=== PATIENT | male | born 1990 | race Two or more races ===

== ENCOUNTER 2025-04-19 21:19 | Inpatient (IN) | payer MEDICAID, OTHER ==
[~2025-04-19] VITALS: Ht 182.9 cm; Wt 120.0 kg
--- NOTE | 2025-04-19 22:28 | ECG ---
[facility] Test Date: 2025-04-19 Test Time: 21:50:31 Pat Name: JUAN ALMARAZ Department: ED Room: 0245T Gender: M Nurse'S Assistant: HANNAH : 1990 Requested By: ANA PAULA ORTIZ Order Number: [id number] Reading MD: Tj Chapman Measurements Intervals [place] Rate: 106 P: 47 MI: 146 QRS: 71 QRSD: 101 T: 34 QT: 314 QTc: 417 Interpretive Statements Sinus tachycardia Probable left atrial enlargement Electronically Signed On 04-20-2025 17:26:37 PST by Tj Chapman Please click the below link to view image of tracing.
[2025-04-19 22:49] LABS: Hematocrit 35.4 % (41.0-53.0); Hemoglobin 12.2 g/dL (13.5-17.5); Mean Corpuscular Hemoglobin 29.8 pg (28.0-32.0); Mean Corpuscular Volume 86.9 fL (80.0-100.0); Nucleated Red Blood Cells % 0.1 %
[2025-04-19 22:56] LABS: Alanine Aminotransferase 23 U/L (7-40); Albumin 3.6 g/dL (3.2-4.8); Alkaline Phosphatase 80 U/L (46-116); Anion Gap 11 (5-15); BUN/Creatinine Ratio 13.7 (10.0-20.0); Blood Urea Nitrogen 17 mg/dL (9-23); Calcium 9.5 mg/dL (8.7-10.4); Carbon Dioxide 25 mmol/L (20-31); Chloride 105 mmol/L (98-107); Potassium 4.1 mmol/L (3.5-5.1); Sodium 141 mmol/L (136-145); Total Protein 6.1 g/dL (5.7-8.2)
[2025-04-19 22:57] LABS: Bilirubin, Total 0.5 mg/dL (0.2-1.0)
[2025-04-19 23:03] LABS: Glucose 157 mg/dL (74-106)
[2025-04-19 23:13] LABS: Base Excess -0.1 mmol/L (-2.0-3.0)
--- NOTE | 2025-04-19 23:56 | DVH ---
CHEST RADIOGRAPH INDICATION: Shortness of breath TECHNIQUE: Single frontal view of the chest was obtained COMPARISON: None FINDINGS: Patchy airspace disease throughout the left mid and lower lung with trace left- sided pleural effusion. Trace right-sided pleural effusion with mild right basilar atelectasis. Cardiac silhouette is borderline in size. Slight prominence of the pulmonary vasculature. Bones and soft tissues demonstrate no significant abnormality. IMPRESSION: Patchy airspace disease throughout the left mid and lower lung suspicious for pneumonia. Cardiomegaly with pulmonary venous congestion.
[2025-04-20] VITALS (16 sets, daily range): BP systolic 140–170; BP diastolic 68–100; PULSE 69–101; RESP 12–19; TEMP 97.6–98.8; O2SAT 91–100
[2025-04-20] MEDS: IOHEXOL 300 MG/ML 100ML BOTTLE IJ ONE (01:18)
[2025-04-20 01:39] LABS: COVID19 ANTIGEN SOFIA FIA NEGATIVE (NEGATIVE)
--- NOTE | 2025-04-20 01:57 | DVH ---
CTA Chest with intravenous contrast INDICATION: SOB, hypoxia, elevated D-dimer COMPARISON: XY CHEST XRAY 1 VIEW on DOS: 04/19/25 TECHNIQUE: Multidetector spiral CTA of the chest was performed of the chest with intravenous contrast. PULMONARY ANGIOGRAPHY PROTOCOL was utilized using a bolus- tracking technique centered on the main pulmonary artery. Axial, coronal and sagittal multiplanar and MIP reformats were performed. Radiation Dose : 1. Chest: CTDI volume is 27.97 mGy. Dose-length product is 2100.08 mGy*cm The dose indicators for CT are the volume Computed Tomography (CT) Dose Index (CTDIvol) and the Dose Length Product (DLP), and are measured in units of mGy and mGy-cm, respectively. These indicators are not patient dose, but values generated from the CT scanner acquisition factors. The report includes radiation exposure data for exposures received during this examination. FINDINGS: Pulmonary artery: No pulmonary embolism. Lower neck: Normal thyroid. Lungs: Moderate bilateral pleural effusions with adjacent atelectasis. Moderate multifocal parenchymal infiltrate throughout all lobes. No pneumothorax. Heart/Vascular Structures: Normal heart size. Trace pericardial effusion. Lymph Nodes: No adenopathy Musculoskeletal: No acute osseous abnormality. Soft tissues: Normal. Upper abdomen: Limited portions of the upper abdomen are unremarkable. IMPRESSION: 1. No pulmonary embolism. 2. Moderate bilateral pleural effusions with adjacent atelectasis. 3. Moderate multifocal parenchymal infiltrate throughout all lobes. 4. Trace pericardial effusion.
[2025-04-20] MEDS: FUROSEMIDE 40 MG/4 ML VIAL IV ONE (02:15)
--- NOTE | 2025-04-20 03:46 | ED.PDOC ---
History of Present Illness HPI Comments 35 year-old male presents to the ED with a chief complaint of SOB and swelling of the bilateral lower extremities. Patient reports swelling of the bilateral lower extremities, ranging from his feet to lower abdomen, for X1 week, progressively worsening. Patient reports SOB onset as of X4 days ago, denies Hx of Asthma or recent ill exposure. Patient was SAT at 88% on RA upon ED arrival. Patient reports additional symptoms of chills and nasal congestion earlier today, but otherwise, denies symptoms of weakness, fatigue, fever, or cough. There are no further complaints or modifying factors at this time. REVIEW OF SYSTEMS: General: No fever, (+) chills, or fatigue HEENT: No sore throat, no earache, (+) congestion, no neck pain. Cardiac: No chest pain. No palpitations. Lungs: (+) shortness of breath, no cough. GI: No nausea, no vomiting, no diarrhea, no constipation, no abdominal pain : No dysuria, frequency, or urgency. No hematuria. Musculoskeletal: (+) Bilat LE swelling. Skin: No rash, no itching. Neuro: No headache, no dizziness, no weakness (And as sated in HPI) PHYSICAL EXAM: General: Awake, alert and oriented. No acute distress. Skin: Skin in warm, dry and intact. Appropriate color for ethnicity. HEENT: The head is normocephalic and atraumatic. Conjunctivae are clear without exudates or hemorrhage. Sclera is non-icteric. Eyelids are normal in appearance without swelling or lesions. Oral mucosa is pink and moist Neck: The neck is supple with normal range of motion. No JVD. Cardiac: Heart rate and rhythm are normal. No murmurs, gallops, or rubs are auscultated. Respiratory: Bilateral Rales Abdominal: Abdomen is soft, non-tender without distention, guarding or rigidity. Bowel sounds are present and normoactive in all four quadrants. Extremities: (+) Bilat 2+ pitting edema. Neurological: The patient is awake, alert and oriented to person, place, and time with normal speech. Speech is clear. There is no facial asymmetry. Psychiatric: Appropriate mood and affect. Good judgement and insight. Chief Complaint: Shortness of Breath Time Seen by MD: 21:30 Primary Care Provider: NONE Reviewed Notes: Medications, Allergies Allergies: Coded Allergies: NO KNOWN ALLERGIES (Unverified , 04/25/11) Information Source: Patient Mode of Arrival: Ambulatory Severity: Moderate Timing: Days Duration: Since onset Past Medical History PAST MEDICAL HISTORY: Denies Surgical History: Denies all surgeries Family History Family History: No family hx of DM Social History Smoker: Cigarettes Alcohol: Heavy Drugs: Marijuana Lives In: Home Was a procedure done? Was a procedure done?: No EKG EKG : Pulse Rate (adult): 106 Comments Sinus tachycardia Probable left atrial enlargement No STEMI Differential Dx Considerations may include: Differential diagnoses considered includebut arenot limited to acute Bronchitis, Asthma, COPD, Pneumothorax, PE, CHF, Pulmonary HTN, Anemia, CO Poisoning, Methemoglobinemia, Hyperventilation, Metabolic Acidosis, Pulmonary Edema, Pneumonia, ACS, Pericardial Tamponade, Anxiety, other X-Ray, Labs, Meds, VS Vital Signs Date Time Temp Pulse Resp B/P (MAP) Pulse Ox O2 Delivery O2 Flow Rate FiO2 04/20/25 03:46 106 04/20/25 03:00 95 Nasal Cannula* 3 32 04/20/25 02:46 91 14 167/98 (121) 95 04/20/25 02:32 98.5 94 12 140/86 (104) 94 98.5 04/20/25 02:15 167/98 04/19/25 21:50 106 04/19/25 21:29 98.9 115 20 153/82 88 98.9 Lab Test 04/19/25 23:39 04/19/25 23:00 04/19/25 22:59 04/19/25 21:57 Range/Units Influenza Type A Antigen Negative Negative Influenza Type B Antigen Negative Negative SARS-CoV-2 Antigen (Rapid) Negative NEGATIVE Blood Gas Specimen Type Arterial Blood Gas Sample Site Left radial Blood Gas Patient Temperature 37.0 Arterial Blood Date Drawn [id number] Arterial Blood pH 7.434 7.350-7.450 Arterial Blood Partial Pressure CO2 36.2 35.0-48.0 mmHg Arterial Blood Partial Pressure O2 89.9 83.0-108.0 mmHg Arterial Blood HCO3 23.7 21.0-28.0 mmol/L Arterial Blood Oxygen Saturation 96.4 94.0-98.0 % Arterial Blood Base Excess -0.1 -2.0-3.0 mmol/L Arterial Blood Oxyhemoglobin 94.3 94.0-98.0 % Arterial Blood Carboxyhemoglobin 1.5 0.5-1.5 % Arterial Blood Methemoglobin 0.7 0.0-1.5 % Arterial Blood Deoxyhemoglobin 3.5 0.0-5.0 % Art Test Modified Blood Gas Total Hemoglobin 13.40 L 13.5-17.5 g/dL Blood Gas Liter Flow 3.00 Blood Gas Modality Nasal cannula FiO2 % 32.0 Lactic Acid Level 0.7 0.4-2.0 mmol/L Troponin I High Sensitivity 4 4 </=54 ng/L White Blood Count 10.3 4.4-10.8 10^3/uL Red Blood Count 4.08 L 4.5-5.90 10^6/uL Hemoglobin 12.2 L 13.5-17.5 g/dL Hematocrit 35.4 L 41.0-53.0 % Mean Corpuscular Volume 86.9 80.0-100.0 fL Mean Corpuscular Hemoglobin 29.8 28.0-32.0 pg Mean Corpuscular Hemoglobin Concent 34.3 32.0-36.0 g/dL Red Cell Distribution Width 13.7 11.8-14.3 % Platelet Count 234 140-450 10^3/uL Mean Platelet Volume 7.6 6.9-10.8 fL Neutrophils (%) (Auto) 86.6 H 37.0-80.0 % Lymphocytes (%) (Auto) 6.8 L 10.0-50.0 % Monocytes (%) (Auto) 5.5 0.0-12.0 % Eosinophils (%) (Auto) 0.6 0.0-7.0 % Basophils (%) (Auto) 0.5 0.0-2.0 % Neutrophils # (Auto) 8.9 H 1.6-8.6 10 ^3/uL Lymphocytes # (Auto) 0.7 0.4-5.4 10 ^3/uL Monocytes # (Auto) 0.6 0-1.3 10 ^3/uL Eosinophils # (Auto) 0.1 0-0.8 10 ^3/uL Basophils # (Auto) 0 0-0.2 10 ^3/uL Nucleated Red Blood Cells 0.1 % D-Dimer, Quantitative 1.19 H 0.0-0.49 mg/L FEU Sodium Level 141 136-145 mmol/L Potassium Level 4.1 3.5-5.1 mmol/L Chloride Level 105 98-107 mmol/L Carbon Dioxide Level 25 20-31 mmol/L Anion Gap 11 5-15 Blood Urea Nitrogen 17 9-23 mg/dL Creatinine 1.24 0.700-1.30 mg/dL Glomerular Filtration Rate Calc 77 >90 mL/min BUN/Creatinine Ratio 13.7 10.0-20.0 Serum Glucose 157 H 74-106 mg/dL Calcium Level 9.5 8.7-10.4 mg/dL Total Bilirubin 0.5 0.2-1.0 mg/dL Aspartate Amino Transferase (AST) 20 13-40 U/L Alanine Aminotransferase (ALT) 23 7-40 U/L Alkaline Phosphatase 80 46-116 U/L B-Type Natriuretic Peptide 63.15 0-100 pg/mL Total Protein 6.1 5.7-8.2 g/dL Albumin 3.6 3.2-4.8 g/dL Current Medications Medications (Trade) Dose Ordered Sig/Abida Route Start Time Stop Time Status Last Admin Furosemide (Lasix Injection) 40 mg ONCE ONCE IV 04/20/25 02:15 04/20/25 02:16 DC 04/20/25 02:15 Ceftriaxone Sodium 50 ml @ 100 mls/hr ONCE ONCE IV 04/20/25 02:15 04/20/25 02:44 DC 04/20/25 02:15 ORDERING PHYSICIAN: ANA PAULA ORTIZ MD PROCEDURE(s): CXR1 - CHEST XRAY 1 VIEW REASON: Shortness of breath ORDER NUMBER(s): [id number], ACCESSION NUMBER(s): [id number] CHEST RADIOGRAPH INDICATION: Shortness of breath TECHNIQUE: Single frontal view of the chest was obtained COMPARISON: None FINDINGS: Patchy airspace disease throughout the left mid and lower lung with trace left- sided pleural effusion. Trace right-sided pleural effusion with mild right basilar atelectasis. Cardiac silhouette is borderline in size. Slight prominence of the pulmonary vasculature. Bones and soft tissues demonstrate no significant abnormality. IMPRESSION: Patchy airspace disease throughout the left mid and lower lung suspicious for pneumonia. Cardiomegaly with pulmonary venous congestion. RING PHYSICIAN: ANA PAULA ORTIZ MD PROCEDURE(s): CTACH - CT ANGIO CHEST CONTRAST REASON: SOB, hypoxia, elevated D-dimer ORDER NUMBER(s): [id number], ACCESSION NUMBER(s): [id number] CTA Chest with intravenous contrast INDICATION: SOB, hypoxia, elevated D-dimer COMPARISON: XY CHEST XRAY 1 VIEW on DOS: 04/19/25 TECHNIQUE: Multidetector spiral CTA of the chest was performed of the chest with intravenous contrast. PULMONARY ANGIOGRAPHY PROTOCOL was utilized using a bolus- tracking technique centered on the main pulmonary artery. Axial, coronal and sagittal multiplanar and MIP reformats were performed. Radiation Dose : 1. Chest: CTDI volume is 27.97 mGy. Dose-length product is 2100.08 mGy*cm The dose indicators for CT are the volume Computed Tomography (CT) Dose Index (CTDIvol) and the Dose Length Product (DLP), and are measured in units of mGy and mGy-cm, respectively. These indicators are not patient dose, but values generated from the CT scanner acquisition factors. The report includes radiation exposure data for exposures received during this examination. FINDINGS: Pulmonary artery: No pulmonary embolism. Lower neck: Normal thyroid. Lungs: Moderate bilateral pleural effusions with adjacent atelectasis. Moderate multifocal parenchymal infiltrate throughout all lobes. No pneumothorax. Heart/Vascular Structures: Normal heart size. Trace pericardial effusion. Lymph Nodes: No adenopathy Musculoskeletal: No acute osseous abnormality. Soft tissues: Normal. Upper abdomen: Limited portions of the upper abdomen are unremarkable. IMPRESSION: 1. No pulmonary embolism. 2. Moderate bilateral pleural effusions with adjacent atelectasis. 3. Moderate multifocal parenchymal infiltrate throughout all lobes. 4. Trace pericardial effusion. Time of 1ST Reevaluation: 03:43 Reevaluation 1ST: Unchanged Patient Education/Counseling: Need For Follow Up Family Education/Counseling: No Family Present SEPSIS Sepsis Screen Date sepsis recognized/suspect: Apr 19, 2025 Time Sepsis recognized/suspect: 2132 Recent Procedure: No On Antibiotic Therapy: No Respiratory Rate >20: No Heart Rate >90: No Temp<36 C (96.8 F) or >38.3 C: No SBP <90 or MAP <65 mmHG: No New Acute Mental Status Change: No Is the patient on CPAP, BIPAP,: No Physician Orders Abg W/ Co-Ox (04/19/25 22:26) Chest Xray 1 View (04/19/25 22:26) Electrocardigram (04/19/25 23:26) Electrocardigram (04/20/25 01:26) Ct Angio Chest Contrast (04/20/25 00:49) Vital Signs Date Time Temp Pulse Resp B/P (MAP) Pulse Ox O2 Delivery O2 Flow Rate FiO2 04/20/25 03:46 106 04/20/25 03:00 95 Nasal Cannula* 3 32 04/20/25 02:46 91 14 167/98 (121) 95 04/20/25 02:32 98.5 94 12 140/86 (104) 94 98.5 04/20/25 02:15 167/98 04/19/25 21:50 106 04/19/25 21:29 98.9 115 20 153/82 88 98.9 Laboratory Tests Test 04/19/25 21:57 04/19/25 22:59 White Blood Count 10.3 10^3/uL (4.4-10.8) Lactic Acid Level 0.7 mmol/L (0.4-2.0) Medications Medications Dose Ordered Sig/Abida Route Start Time Stop Time Status Last Admin Dose Admin Ceftriaxone Sodium 50 ml @ 100 mls/hr ONCE ONCE IV 04/20/25 02:15 04/20/25 02:44 DC 04/20/25 02:15 Furosemide 40 mg ONCE ONCE IV 04/20/25 02:15 04/20/25 02:16 DC 04/20/25 02:15 Departure 1 Departure Time of Disposition: 04:13 Impression: Primary Impression: Hypoxia Additional Impressions: Pleural effusion Bilateral lower extremity edema Pericardial effusion Disposition: 09 ADMITTED INPATIENT Condition: Stable Comments 35-year-old male who presented with acute onset of shortness of breath, b ilateral lower extremity edema, hypoxia on room air. D-dimer positive. CT angio findings negative for PE. Other findings concerning for possible infectious process versus CHF. Antibiotics initiated in the ED, supplemental O2 administered. Patient is stabilized in the emergency department. Patient admitted to hospitalist service for further treatment, evaluation and monitoring. Critical Care Note Critical Care Time?: No Stability Stability form required: No Heart Score Heart Score: Heart Score Response (Comments) Value History Slightly Suspicious 0 EKG Normal 0 Age <45 0 Risk Factors No known risk factors 0 Troponin N/A 0 Total 0 I personally scribed for ANA PAULA ORTIZ MD ([email or web address]) on 04/20/25 at 03:46. Electronically submitted by Nancy Garcia ([employer]). ANA PAULA ORTIZ MD Apr 20, 2025 03:46
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
[2025-04-20] MEDS ORDERED: NITROGLYCERIN 0.4 MG SL TAB SL PRN (07:15)
[2025-04-20] MEDS ORDERED: DEXTROSE (50%) 50ML SYRG IV PRN (07:15)
--- NOTE | 2025-04-20 08:24 | DVH ---
Bilateral lower extremity venous duplex CLINICAL HISTORY: ble swelling ro dvt COMPARISON: None TECHNIQUE: Duplex Doppler evaluation of the deep venous systems of both lower extremities from the common femoral veins to the popliteal veins including color Doppler and spectral/pulsed waveform analysis was performed. FINDINGS: RIGHT SIDE: The common femoral vein demonstrates appropriate compressibility and waveform variability. There is compressibility/patency of the great saphenous vein at the proximal thigh. The femoral vein demonstrates appropriate compressibility and waveform variability. The deep femoral vein demonstrates appropriate compressibility and waveform variability. The popliteal vein demonstrates appropriate compressibility and waveform variability. There is normal compressibility at the tibioperoneal trunk. LEFT SIDE: The common femoral vein demonstrates appropriate compressibility and waveform variability. There is compressibility/patency of the great saphenous vein at the proximal thigh. The femoral vein demonstrates appropriate compressibility and waveform variability. The deep femoral vein demonstrates appropriate compressibility and waveform variability. The popliteal vein demonstrates appropriate compressibility and waveform variability. There is normal compressibility at the tibioperoneal trunk. IMPRESSION: No right or left femoropopliteal venous thrombosis.
--- NOTE | 2025-04-20 08:29 | DVHHP2 ---
History of Present Illness Reason for Visit: sob and ble swelling History of Present Illness 35-year-old male with a past medical history significant for diabetic peripheral neuropathy of the lower extremities, asthma, and type 2 diabetes mellitus on insulin, with a history of toe amputation two years ago, presents with progres sive bilateral lower extremity swelling and shortness of breath. The patient reports that approximately 1.5 weeks prior to presentation, he developed swelling beginning below the knees extending to his feet, which has progressively worsened and now involves the upper thighs. Over the last four days, the swelling has become significantly worse and is associated with severe pain, causing difficulty ambulating. He states he was evaluated at [facility], where labs were drawn, but he has been unable to obtain follow-up or further guidance despite multiple attempts to contact the clinic. He reports shortness of breath, but denies chest pain, fever, or productive cough. He does not use home oxygen. On arrival to the ED, the patient was noted to be hypoxic with oxygen saturation of 88% on room air. He denies recent travel, immobilization, or prior history of pulmonary embolism.In the emergency department, laboratory evaluation revealed CBC with hemoglobin 11.7 g/dL and hematocrit 35.1%, CMP unremarkable, troponin negative x2, and BNP unremarkable at 119. ABG was within normal limits. CT angiography of the chest was negative for pulmonary embolism, however imaging demonstrated small to moderate pulmonary infiltrates consistent with pneumonia. Respiratory viral panel was positive for influenza, with COVID-19 negative. The patient was noted to have diffuse bilateral lower extremity edema on exam. Given hypoxia, imaging findings, and functional decline, the patient requires inpatient admission for further management. Past Medical History Reviewed, non-contributory to the management of this case. Past Surgical History See HPI above Family History Reviewed, non-contributory to the management of this case. Past Social History Patient states he drank four days ago denies any drug or smoking Review of Systems Constitutional: No: Fever, Chills, Sweats, Weakness, Malaise, Other Eyes: No: Pain, Vision change, Conjunctivae inflammation, Eyelid inflammation, Other, Redness ENT: No: Ear pain, Ear discharge, Nose pain, Nose discharge, Nose congestion, Mouth pain, Mouth swelling, Throat pain, Throat swelling, Other Respiratory: Other (diminished throughout ); No: Cough, Dry, Shortness of breath, SOB with excertion, Wheezing, Hemoptysis, Pleuritic Pain, Sputum, Wheezing Cardiovascular: Edema; No: Chest Pain, Palpitations, Orthopnea, Paroxysmal Noc. Dyspnea, Lt Headedness, Other Gastrointestinal: No: Nausea, Vomiting, Abdominal Pain, Diarrhea, Constipation, Melena, Hematochezia, Other Genitourinary: No Dysuria, No Frequency, No Incontinence, No Hematuria, No Retention, No Other Musculoskeletal: leg pain; No: other, neck pain, shoulder pain, arm pain, back pain, hand pain, foot pain Skin: No: Rash, Lesions, Jaundice, Bruising, Other Neurological: No: Weakness, Numbness, Incoordination, Change in speech, Confusion, Seizures, Other Allergies: Coded Allergies: NO KNOWN ALLERGIES (Unverified , 04/25/11) Medications Current Medications Medications Dose Ordered Sig/Abida Route Start Time Stop Time Status Last Admin Dose Admin Heparin Sodium (Porcine) 5,000 units Q12HR SC 04/20/25 10:00 Atorvastatin Calcium 20 mg HS PO 04/20/25 22:00 Carvedilol 6.25 mg Q12HR PO 04/20/25 10:00 Furosemide 40 mg BID IV 04/20/25 10:00 Nitroglycerin 0.4 mg Q5MINP PRN SL 04/20/25 07:15 Albuterol 2.5 mg Q4HR [facility] 04/20/25 10:00 Ipratropium [place] 0.5 mg Q4HR [facility] 04/20/25 10:00 Prednisone 60 mg DAILY PO 04/20/25 10:00 Pantoprazole Sodium 40 mg DAILY IV 04/21/25 10:00 Diagnostic Test (Pha) 1 strip ACHS 04/20/25 11:30 Insulin Human Regular ACHS SC 04/20/25 11:30 Dextrose 50 ml UD PRN IV 04/20/25 07:15 Insulin Glargine 5 units BID@0700,2200 [place] 04/20/25 22:00 Exam Vital Signs Vital Signs Date Time Temp Pulse Resp B/P (MAP) Pulse Ox O2 Delivery O2 Flow Rate FiO2 04/20/25 07:25 98.3 69 19 162/100 (120) 96 98.3 04/20/25 07:25 Nasal Cannula* 2 28 General Appearance: Alert, Oriented X3, Cooperative, No acute distress HEENT: Atraumatic, PERRLA, EOMI, Mucous membr. moist/pink Respiratory: Other (diminished throughout ) Cardiovascular: Regular rate, Normal S1, Normal S2, No murmurs Abdominal: Normal bowel sounds, Soft, No tenderness, No hepatospenomegaly, No masses Extremities: No clubbing, No cyanosis, Normal pulses, No tenderness/swelling, Other (edema to ble ) Skin: No rashes, No breakdown, No significant lesion Neuro: Normal gait, Normal speech, Strength at 5/5 X4 ext, Normal tone, Sensation intact, Cranial nerves 3-12 NL Psych/Mental Status: Mental status NL, Mood NL Labs/Xrays CT scan angio negative for PE atelectasis mild moderate infiltrates chest x-ray with pneumonia I reviewed labs, imaging CT scan abdomen pelvis, EKG and all diagnostic studies on this patient from ED records and the medical chart Labs Test 04/20/25 08:08 04/19/25 23:39 04/19/25 23:00 04/19/25 22:59 Range/Units Influenza Type A Antigen Negative Negative Influenza Type B Antigen Negative Negative SARS-CoV-2 Antigen (Rapid) Negative NEGATIVE Blood Gas Specimen Type Arterial Blood Gas Sample Site Left radial Blood Gas Patient Temperature 37.0 Arterial Blood Date Drawn [id number] Arterial Blood pH 7.434 7.350-7.450 Arterial Blood Partial Pressure CO2 36.2 35.0-48.0 mmHg Arterial Blood Partial Pressure O2 89.9 83.0-108.0 mmHg Arterial Blood HCO3 23.7 21.0-28.0 mmol/L Arterial Blood Oxygen Saturation 96.4 94.0-98.0 % Arterial Blood Base Excess -0.1 -2.0-3.0 mmol/L Arterial Blood Oxyhemoglobin 94.3 94.0-98.0 % Arterial Blood Carboxyhemoglobin 1.5 0.5-1.5 % Arterial Blood Methemoglobin 0.7 0.0-1.5 % Arterial Blood Deoxyhemoglobin 3.5 0.0-5.0 % Art Test Modified Blood Gas Total Hemoglobin 13.40 L 13.5-17.5 g/dL Blood Gas Liter Flow 3.00 Blood Gas Modality Nasal cannula FiO2 % 32.0 Lactic Acid Level 0.7 0.4-2.0 mmol/L Test 04/19/25 21:57 Range/Units White Blood Count 10.3 4.4-10.8 10^3/uL Red Blood Count 4.08 L 4.5-5.90 10^6/uL Hemoglobin 12.2 L 13.5-17.5 g/dL Hematocrit 35.4 L 41.0-53.0 % Mean Corpuscular Volume 86.9 80.0-100.0 fL Mean Corpuscular Hemoglobin 29.8 28.0-32.0 pg Mean Corpuscular Hemoglobin Concent 34.3 32.0-36.0 g/dL Red Cell Distribution Width 13.7 11.8-14.3 % Platelet Count 234 140-450 10^3/uL Mean Platelet Volume 7.6 6.9-10.8 fL Neutrophils (%) (Auto) 86.6 H 37.0-80.0 % Lymphocytes (%) (Auto) 6.8 L 10.0-50.0 % Monocytes (%) (Auto) 5.5 0.0-12.0 % Eosinophils (%) (Auto) 0.6 0.0-7.0 % Basophils (%) (Auto) 0.5 0.0-2.0 % Neutrophils # (Auto) 8.9 H 1.6-8.6 10 ^3/uL Lymphocytes # (Auto) 0.7 0.4-5.4 10 ^3/uL Monocytes # (Auto) 0.6 0-1.3 10 ^3/uL Eosinophils # (Auto) 0.1 0-0.8 10 ^3/uL Basophils # (Auto) 0 0-0.2 10 ^3/uL Nucleated Red Blood Cells 0.1 % D-Dimer, Quantitative 1.19 H 0.0-0.49 mg/L FEU Sodium Level 141 136-145 mmol/L Potassium Level 4.1 3.5-5.1 mmol/L Chloride Level 105 98-107 mmol/L Carbon Dioxide Level 25 20-31 mmol/L Anion Gap 11 5-15 Blood Urea Nitrogen 17 9-23 mg/dL Creatinine 1.24 0.700-1.30 mg/dL Glomerular Filtration Rate Calc 77 >90 mL/min BUN/Creatinine Ratio 13.7 10.0-20.0 Serum Glucose 157 H 74-106 mg/dL Calcium Level 9.5 8.7-10.4 mg/dL Total Bilirubin 0.5 0.2-1.0 mg/dL Aspartate Amino Transferase (AST) 20 13-40 U/L Alanine Aminotransferase (ALT) 23 7-40 U/L Alkaline Phosphatase 80 46-116 U/L B-Type Natriuretic Peptide 63.15 0-100 pg/mL Total Protein 6.1 5.7-8.2 g/dL Albumin 3.6 3.2-4.8 g/dL SEPSIS Sepsis Screen Date sepsis recognized/suspect: Apr 20, 2025 Time Sepsis recognized/suspect: 724 Recent Procedure: No On Antibiotic Therapy: No Respiratory Rate >20: No Heart Rate >90: No Temp<36 C (96.8 F) or >38.3 C: No SBP <90 or MAP <65 mmHG: No New Acute Mental Status Change: No Is the patient on CPAP, BIPAP,: No Physician Orders Ct Angio Chest Contrast (04/20/25 00:49) Bilat Lower Dvt (04/20/25 07:03) Admit (04/20/25 07:03) Advance Directive (04/20/25 07:03) Vital Signs .PER UNIT PROTOCOL (04/20/25 07:03) Maintain Fluid Restrictions QSHIFT (04/20/25 07:03) Obtain Daily Weight 22 (04/20/25 07:03) Heparin Sodium (Porcine) (04/20/25 10:00) Atorvastatin (Lipitor) (04/20/25 22:00) Carvedilol Tablet (Coreg Tablet) (04/20/25 10:00) Comprehensive Metabolic Panel (04/21/25 04:00) Complete Blood Count (04/21/25 04:00) Echo 2d Mode Cardiac Dop (04/20/25 07:03) Copy Of Previous Echo Report T (04/20/25 07:03) Oxygen By Nasal Cannula (04/20/25 07:03) Early Ambulation (04/20/25 07:03) Sequential Compression Device (04/20/25 07:03) Cardiac Diet-2gna,Lofat,Lochol (04/20/25 Breakfast) Ambulate Every 4hours Q4H (04/20/25 07:03) Troponin-I Hs (04/20/25 07:03) Cardiac Rehabilitation - Outpa (04/20/25 ) Subjective Activity Tolerance BID (04/20/25 07:03) Strict I & O QSHIFT (04/20/25 07:03) Teach: Heart Failure (04/20/25 07:03) Thyroid Stimulating Hormone (04/20/25 07:03) Urinalysis (04/20/25 07:03) Magnesium (04/20/25 07:03) * Cardiology Consult (04/20/25 07:03) Cardiac Rehabilitation: (04/20/25 07:03) Furosemide Injection (Lasix Injection) (04/20/25 10:00) Nitroglycerin Sublingual (Ntrostat Subli (04/20/25 07:15) Stat Ekg For Chest Pain (04/20/25 07:03) Notify Md Of Changes From Base (04/20/25 07:03) Wool Washing Machine Operator For 24 Hours (04/20/25 07:03) Emergency Dysrhythmia Protocol (04/20/25 07:03) Rhythm Strips Once Every Shift (04/20/25 07:03) Oxygen By Nasal Cannula (04/20/25 07:03) Troponin-I Hs (04/20/25 08:03) Troponin-I Hs (04/20/25 10:03) Albuterol Medneb (Ventolin Medneb) (04/20/25 10:00) Ipratropium Medneb (Atrovent Medneb) (04/20/25 10:00) Prednisone Tablet (04/20/25 10:00) Glucose Blood (Accu-Chek Comfort Curve T (04/20/25 11:30) Insulin R (Human) (Insulin R) (04/20/25 11:30) Dextrose 50% Syringe (04/20/25 07:15) Insulin Lantus (Glargine) (Lantus) (04/20/25 22:00) Pantoprazole (Protonix) (04/21/25 10:00) Vital Signs Date Time Temp Pulse Resp B/P (MAP) Pulse Ox O2 Delivery O2 Flow Rate FiO2 04/20/25 07:25 98.3 69 19 162/100 (120) 96 98.3 04/20/25 07:25 69 19 96 Nasal Cannula* 2 28 04/20/25 07:25 98.3 69 19 162/100 (120) 96 98.3 04/20/25 03:46 106 04/20/25 03:00 95 Nasal Cannula* 3 32 04/20/25 02:46 91 14 167/98 (121) 95 04/20/25 02:32 98.5 94 12 140/86 (104) 94 98.5 04/20/25 02:15 167/98 Laboratory Tests Test 04/19/25 21:57 04/19/25 22:59 White Blood Count 10.3 10^3/uL (4.4-10.8) Lactic Acid Level 0.7 mmol/L (0.4-2.0) Medications Medications Dose Ordered Sig/Abida Route Start Time Stop Time Status Last Admin Dose Admin Ceftriaxone Sodium 50 ml @ 100 mls/hr ONCE ONCE IV 04/20/25 02:15 04/20/25 02:44 DC 04/20/25 02:15 100 MLS/HR Furosemide 40 mg ONCE ONCE IV 04/20/25 02:15 04/20/25 02:16 DC 04/20/25 02:15 40 MG Assessment/Plan Assessment/Plan 35-year-old male admitted for acute hypoxic respiratory failure secondary to influenza-associated pneumonia, with severe bilateral lower extremity edema and impaired mobility, requiring inpatient management and further diagnostic evaluation. Acute hypoxic respiratory failure d/t pna and asthma exacerbation found on ct scan and cxr cont Oxygen saturation 88% on room air Supplemental oxygen to maintain SpO2 >92% Continuous pulse oximetry ordered duoneb atc ordered prednisone influenza and covid negative acute bacterial community acquired pneumonia Influenza negative, COVID negative CT chest showing pulmonary infiltrates Empiric antibiotics per pneumonia protocol ceftriaxone and doxy Incentive spirometry acute Bilateral lower extremity edema with pain Progressive swelling from feet to thighs Evaluate for volume overload vs inflammatory etiology ordered echo fu results cxr and bnp normal ordered Lower extremity venous duplex ultrasound Elevation of extremities ordered lovenox dvt ppx for now ordered lasix bid strict i/o's chronic problems Type 2 diabetes mellitus on insulin ISS started home dose lantus 5units bid History of toe amputation Diabetic peripheral neuropathy Chronic lower extremity neuropathic pain Asthma ordered albuterol/atrovent prn Anemia, mild Hemoglobin FEN / PPx Fluids: Cautious IV fluids Electrolytes: Monitor daily BMP Nutrition: Diabetic diet DVT Prophylaxis: SCDs lovenox GI Prophylaxis: protonix Disposition Admit to medical floor with oxygen support for management of acute hypoxic respiratory failure due to influenza pneumonia, evaluation of severe bilateral lower extremity edema, and optimization of diabetes control. Anticipate discharge once oxygen requirements improve and patient is ambulatory with controlled pain. Plan discussed with: Patient My Orders Orders - MED MARVIN DNP Procedure Category Date Status Time Bilat Lower Dvt US 04/20/25 Resulted 07:03 Admit ADMIT 04/20/25 Transmitted 07:03 Advance Directive SHAYNE 04/20/25 In Process 07:03 Vital Signs SHAYNE 04/20/25 In Process 07:03 Maintain Fluid SHAYNE 04/20/25 In Process Restrictions 07:03 Obtain Daily Weight SHAYNE 04/20/25 In Process 07:03 Heparin Sodium PHA 04/20/25 In Process (Porcine) 10:00 Atorvastatin (Lipitor) PHA 04/20/25 In Process 22:00 Carvedilol Tablet PHA 04/20/25 In Process (Coreg Tablet) 10:00 Comprehensive LAB 04/21/25 Verified Metabolic Panel 04:00 Complete Blood Count LAB 04/21/25 Verified 04:00 Echo 2d Mode Cardiac US 04/20/25 Logged DOP 07:03 Copy Of Previous Echo SHAYNE 04/20/25 In Process Report T 07:03 Oxygen By Nasal RT 04/20/25 Transmitted Cannula 07:03 Early Ambulation SHAYNE 04/20/25 In Process 07:03 Sequential SHAYNE 04/20/25 In Process Compression Device 07:03 Cardiac DIET 04/20/25 Transmitted Diet-2gna,Lofat,Lochol Breakfast Ambulate Every 4hours [facility]NE 04/20/25 In Process 07:03 Troponin-I Hs LAB 04/20/25 In Process 07:03 Cardiac SHAYNE 04/20/25 In Process Rehabilitation - Outpa Subjective Activity SHAYNE 04/20/25 In Process Tolerance 07:03 Strict I & O SHAYNE 04/20/25 In Process 07:03 Teach: Heart Failure SHAYNE 04/20/25 In Process 07:03 Thyroid Stimulating LAB 04/20/25 In Process Hormone 07:03 Urinalysis LAB 04/20/25 Logged 07:03 Magnesium LAB 04/20/25 In Process 07:03 * Cardiology Consult CONS 04/20/25 Transmitted 07:03 Cardiac ORDERS 04/20/25 Transmitted Rehabilitation: 07:03 Furosemide Injection PHA 04/20/25 In Process (Lasix Injection) 10:00 Nitroglycerin PHA 04/20/25 In Process Sublingual (Ntrostat 07:15 Stat Ekg For Chest SHAYNE 04/20/25 In Process Pain 07:03 Notify Of Changes [facility] 04/20/25 In Process From Base 07:03 Wool Washing Machine Operator For [facility] 04/20/25 In Process 24 Hours 07:03 Emergency Dysrhythmia [facility] 04/20/25 In Process Protocol 07:03 Rhythm Strips Once [facility] 04/20/25 In Process Every Shift 07:03 Oxygen By Nasal RT 04/20/25 Transmitted Cannula 07:03 Troponin-I Hs LAB 04/20/25 Logged 08:03 Troponin-I Hs LAB 04/20/25 Logged 10:03 Albuterol Medneb PHA 04/20/25 In Process (Ventolin Medneb) 10:00 Ipratropium Medneb PHA 04/20/25 In Process (Atrovent Medneb) 10:00 Prednisone Tablet PHA 04/20/25 In Process 10:00 Glucose Blood PHA 04/20/25 In Process (Accu-Chek Comfort 11:30 Insulin R (Human) PHA 04/20/25 In Process (Insulin R) 11:30 Dextrose 50% Syringe PHA 04/20/25 In Process 07:15 Insulin Lantus PHA 04/20/25 In Process (Glargine) (Lantus) 22:00 Pantoprazole PHA 04/21/25 In Process (Protonix) 10:00 Date of Service: Apr 20, 2025 Billing Provider: MED MARVIN DNP Common Visit Codes: [id number] INP/OBS CARE (HIGH) MED MARVIN DNP Apr 20, 2025 08:29
[2025-04-20] MEDS: PANTOPRAZOLE 40 MG/10 ML VIAL INJ IV ONE (08:34)
[2025-04-20] MEDS ORDERED: AZITHROMYCIN 500MG/250ML 250 ML IV ONE (09:00)
[2025-04-20] MEDS ORDERED: AZITHROMYCIN 500MG/250ML 250 ML IV SCH (10:00)
[2025-04-20] MEDS: predniSONE 20 MG TAB PO SCH (10:00)
[2025-04-20] MEDS: FUROSEMIDE 40 MG/4 ML VIAL IV SCH (10:08)
[2025-04-20] MEDS: CARVEDILOL 3.125 MG TAB PO SCH (10:12)
[2025-04-20] MEDS: HEPARIN SODIUM (PORCINE) 5000 UNITS/ML 1ML VIAL SC SCH (10:14)
[2025-04-20] MEDS: LOSARTAN POTASSIUM 50 MG TAB PO SCH (10:17)
[2025-04-20] MEDS: DOXYCYCLINE 100MG/100ML 100 ML IV SCH (10:41)
[2025-04-20] MEDS: IPRATROPIUM BROM 0.5 MG/2.5ML INH SOL NEB SCH (11:08)
[2025-04-20] MEDS: ALBUTEROL SULF 2.5 MG/0.5ML(0.5%) NEB SOLN NEB SCH (11:08)
[2025-04-20] MEDS: ACCU-CHEK COMFORT CURVE STRIP VI SCH (11:30)
[2025-04-20] MEDS: InsuLIN REG 1unit/0.01ml Soln (100units/ml) SC SCH (11:30)
--- NOTE | 2025-04-20 11:56 | DVHINCON2 ---
Date Seen: Apr 20, 2025 Referring Physician KEVIN Juan Reason for Consultation B/L LE edema History of Present Illness Patient is a 35-year-old male presented to the ED with a chief complaint of shortness of breath and bilateral lower extremity edema of for about 10 days. Patient noticed that his ankle started swelling about 10 days ago and made progressed up to his knees in the last week. Patient also reported of occas ional shortness of breath more when he bent down to tie shoes, denies orthopnea, PND, chest pain. He also has been reporting of mild intermittent cough with minimal whitish phlegm, denies any hemoptysis and reports of tooth ache for the last few weeks for which he is not consulted any dentist. Patient denied any fever, chills, night sweats, weight loss. On arrival to the hospital patient was seen to be tachycardic in 100, elevated blood pressure in 160-170 SBP, ECG showed sinus rhythm with no acute ST or T-wave changes. Patient denied any episode of shortness of breath or lower extremity swelling prior to this. Past Medical History Insulin-dependent type 2 diabetes mellitus, diabetic peripheral neuropathy Past Surgical History Right great toe amputation Family History: Patient reports no known family medical history. Family History No history of heart failure, VT, sudden cardiac in the family Social History Patient vapes, drinks 6 pack of beer twice a week, no other drug use Allergies: Coded Allergies: NO KNOWN ALLERGIES (Unverified , 04/25/11) Current Medications Current Medications Medications (Trade) Dose Ordered Sig/Abida Route PRN Reason Start Time Stop Time Status Last Admin Heparin Sodium (Porcine) 5,000 units Q12HR SC 04/20/25 10:00 04/20/25 10:14 Atorvastatin Calcium (Lipitor) 20 mg HS PO 04/20/25 22:00 Carvedilol (Coreg Tablet) 6.25 mg Q12HR PO 04/20/25 10:00 04/20/25 10:12 Furosemide (Lasix Injection) 40 mg BID IV 04/20/25 10:00 04/20/25 10:08 Nitroglycerin (Ntrostat Sublingual) 0.4 mg Q5MINP PRN SL FOR CHEST PAIN 04/20/25 07:15 Albuterol (Ventolin Medneb) 2.5 mg Q4HR NEB 04/20/25 10:00 04/20/25 11:08 Ipratropium [place] (Atrovent Medneb) 0.5 mg Q4HR NEB 04/20/25 10:00 04/20/25 11:08 Prednisone 60 mg DAILY PO 04/20/25 10:00 Pantoprazole Sodium (Protonix) 40 mg DAILY IV 04/21/25 10:00 Diagnostic Test (Pha) (Accu-Chek Comfort Curve T) 1 strip ACHS 04/20/25 11:30 Insulin Human Regular (InsuLIN R) ACHS SC 04/20/25 11:30 Dextrose 50 ml UD PRN IV Blood Sugar LESS THAN 60 04/20/25 07:15 Insulin Glargine (Lantus) 5 units BID@0700,2200 [place] 04/20/25 22:00 Azithromycin 250 ml @ 125 mls/hr DAILY IV 04/20/25 10:00 04/20/25 09:04 DC Ceftriaxone Sodium 50 ml @ 100 mls/hr DAILY@09 IV 04/20/25 09:00 04/20/25 10:04 Doxycycline Hyclate 100 ml @ 100 mls/hr BID IV 04/20/25 10:00 04/20/25 10:41 Losartan Potassium (Cozaar Tablet) 50 mg DAILY PO 04/20/25 10:00 04/20/25 10:17 Review of Systems Patient is sitting comfortably in bed Oxygen turned off, saturation maintained above 94% on room air Denied any shortness of breath, chest pain, headache, any pain Vital Signs Vital Signs Date Time Temp Pulse Resp B/P (MAP) Pulse Ox O2 Delivery O2 Flow Rate FiO2 04/20/25 10:17 170/100 04/20/25 10:12 93 04/20/25 07:25 98.3 19 96 98.3 04/20/25 07:25 Nasal Cannula* 2 28 Physical Exam Skin - Patients skin is warm and dry. HEENT - normocephalic, atraumatic, moist mucous membranes, no scleral icterus, no conjunctival pallor. Neck - full ROM, no LAD, no JVD Pulmonary - B/L clear breath sounds without any wheezing, rales or stridor cardiovascular - regular S1,S2 heard, no added sounds or murmurs heard. peripheral pulses normal radial 2+, pedal 2+. GI - soft, nontender abdomen. no hepatospleenomegaly. Bowel sounds normoactive Neurological - Patient is A/O X 4 . Bilateral upper extremity strength 5/5, bilateral lower extremity strength 5/5, no facial droop, normal speech, no tremor, sensory deficits in feet Labs/Diagnostic Data Labs Test 04/20/25 10:56 04/20/25 08:08 04/19/25 23:39 04/19/25 23:00 Range/Units Troponin I High Sensitivity 3 L </=54 ng/L Magnesium Level 1.5 L 1.6-2.6 mg/dL Thyroid Stimulating Hormone (TSH) 1.21 0.55-4.78 uIU/mL Influenza Type A Antigen Negative Negative Influenza Type B Antigen Negative Negative SARS-CoV-2 Antigen (Rapid) Negative NEGATIVE Blood Gas Specimen Type Arterial Blood Gas Sample Site Left radial Blood Gas Patient Temperature 37.0 Arterial Blood Date Drawn [id number] Arterial Blood pH 7.434 7.350-7.450 Arterial Blood Partial Pressure CO2 36.2 35.0-48.0 mmHg Arterial Blood Partial Pressure O2 89.9 83.0-108.0 mmHg Arterial Blood HCO3 23.7 21.0-28.0 mmol/L Arterial Blood Oxygen Saturation 96.4 94.0-98.0 % Arterial Blood Base Excess -0.1 -2.0-3.0 mmol/L Arterial Blood Oxyhemoglobin 94.3 94.0-98.0 % Arterial Blood Carboxyhemoglobin 1.5 0.5-1.5 % Arterial Blood Methemoglobin 0.7 0.0-1.5 % Arterial Blood Deoxyhemoglobin 3.5 0.0-5.0 % Art Test Modified Blood Gas Total Hemoglobin 13.40 L 13.5-17.5 g/dL Blood Gas Liter Flow 3.00 Blood Gas Modality Nasal cannula FiO2 % 32.0 Test 04/19/25 22:59 04/19/25 21:57 Range/Units Lactic Acid Level 0.7 0.4-2.0 mmol/L White Blood Count 10.3 4.4-10.8 10^3/uL Red Blood Count 4.08 L 4.5-5.90 10^6/uL Hemoglobin 12.2 L 13.5-17.5 g/dL Hematocrit 35.4 L 41.0-53.0 % Mean Corpuscular Volume 86.9 80.0-100.0 fL Mean Corpuscular Hemoglobin 29.8 28.0-32.0 pg Mean Corpuscular Hemoglobin Concent 34.3 32.0-36.0 g/dL Red Cell Distribution Width 13.7 11.8-14.3 % Platelet Count 234 140-450 10^3/uL Mean Platelet Volume 7.6 6.9-10.8 fL Neutrophils (%) (Auto) 86.6 H 37.0-80.0 % Lymphocytes (%) (Auto) 6.8 L 10.0-50.0 % Monocytes (%) (Auto) 5.5 0.0-12.0 % Eosinophils (%) (Auto) 0.6 0.0-7.0 % Basophils (%) (Auto) 0.5 0.0-2.0 % Neutrophils # (Auto) 8.9 H 1.6-8.6 10 ^3/uL Lymphocytes # (Auto) 0.7 0.4-5.4 10 ^3/uL Monocytes # (Auto) 0.6 0-1.3 10 ^3/uL Eosinophils # (Auto) 0.1 0-0.8 10 ^3/uL Basophils # (Auto) 0 0-0.2 10 ^3/uL Nucleated Red Blood Cells 0.1 % D-Dimer, Quantitative 1.19 H 0.0-0.49 mg/L FEU Sodium Level 141 136-145 mmol/L Potassium Level 4.1 3.5-5.1 mmol/L Chloride Level 105 98-107 mmol/L Carbon Dioxide Level 25 20-31 mmol/L Anion Gap 11 5-15 Blood Urea Nitrogen 17 9-23 mg/dL Creatinine 1.24 0.700-1.30 mg/dL Glomerular Filtration Rate Calc 77 >90 mL/min BUN/Creatinine Ratio 13.7 10.0-20.0 Serum Glucose 157 H 74-106 mg/dL Calcium Level 9.5 8.7-10.4 mg/dL Total Bilirubin 0.5 0.2-1.0 mg/dL Aspartate Amino Transferase (AST) 20 13-40 U/L Alanine Aminotransferase (ALT) 23 7-40 U/L Alkaline Phosphatase 80 46-116 U/L B-Type Natriuretic Peptide 63.15 0-100 pg/mL Total Protein 6.1 5.7-8.2 g/dL Albumin 3.6 3.2-4.8 g/dL Assessment Bilateral lower extremity edema Possible heart failure ?Diastolic dysfunction Possible pulmonary hypertension Hypertensive heart disease with a possible heart failure Pneumonia Bilateral Pleural effusions Plan/Recommendation - continue diuresis with Lasix b.i.d. , strict I&O - blood pressure control with the losartan, Coreg. add MRA if tolerated - echocardiogram pending - strict glycemic control Goals of care discussed with the patient for over 16 minutes. Plan discussed with Dr. Chapman Plan discussed with: Patient NYHA Physical activity limitations: Class1(None)absent sob, Date of Service: Apr 20, 2025 Billing Provider: YOLA CHAPMAN Sr., MD Cardiology Common Codes: [id number] INP/OBS CARE (High) AIDA DOUGLASS RESIDENT Apr 20, 2025 11:56
[2025-04-20 12:31] LABS: Urine Protein, UAD 1+ (Negative)
[2025-04-20 13:13] LABS: Amphetamine Screen, Urine Neg (NEGATIVE); Barbiturate Scree,Urine Neg (NEGATIVE); Benzodiazephine Screen, Urine Neg (NEGATIVE); Cannabinoid Screen, Urine Neg (NEGATIVE); Cocaine Screen, Urine Neg (NEGATIVE); Opiate Scree,Urine Neg (NEGATIVE); Phencyclidine Screen, Urine Neg (NEGATIVE)
[2025-04-20] MEDS ORDERED: HYDR-4798 PO (14:06)
[2025-04-20] MEDS ORDERED: GABA300T4 PO (14:06)
[2025-04-20] MEDS ORDERED: INSLANTI SC (14:06)
[2025-04-20] MEDS: INSULIN LANTUS (GLARGINE) 1 /0.01ml (100units/ml) SC SCH (21:48)
[2025-04-20] MEDS: ATORVASTATIN 20 MG TAB PO SCH (21:51)
[2025-04-21] VITALS (20 sets, daily range): BP systolic 121–155; BP diastolic 73–95; PULSE 73–108; RESP 4–19; TEMP 97.3–98.2; O2SAT 90–100
[2025-04-21 05:56] LABS: Hematocrit 34.8 % (41.0-53.0); Hemoglobin 11.9 g/dL (13.5-17.5); Mean Corpuscular Hemoglobin 29.4 pg (28.0-32.0); Mean Corpuscular Volume 86.0 fL (80.0-100.0); Nucleated Red Blood Cells % 0.0 %
[2025-04-21 06:28] LABS: Alkaline Phosphatase 77 U/L (46-116)
[2025-04-21 06:29] LABS: Alanine Aminotransferase 18 U/L (7-40); Albumin 3.6 g/dL (3.2-4.8); Anion Gap 11 (5-15); BUN/Creatinine Ratio 14.4 (10.0-20.0); Bilirubin, Total 0.5 mg/dL (0.2-1.0); Blood Urea Nitrogen 16 mg/dL (9-23); Calcium 9.4 mg/dL (8.7-10.4); Carbon Dioxide 28 mmol/L (20-31); Chloride 101 mmol/L (98-107); Potassium 3.7 mmol/L (3.5-5.1); Sodium 140 mmol/L (136-145); Total Protein 6.3 g/dL (5.7-8.2)
[2025-04-21 06:31] LABS: Glucose 134 mg/dL (74-106)
[2025-04-21] MEDS: PANTOPRAZOLE 40 MG/10 ML VIAL INJ IV SCH (09:36)
--- NOTE | 2025-04-21 12:44 | DVHSR ---
APPROVED REPORT EXAM: Two-dimensional and M-mode echocardiogram with Doppler and color Doppler. Blood Pressure: 137/90 mmHg INDICATION Eval for cardiac function and ef RISK FACTORS Height: 6', Weight: 267 DIMENSIONS LVDd 4.7 (3.8-5.7cm) LA (2D) 4.0 (1.9-4.0cm) Aortic Root 3.4 (2.0-3.7cm) LVDs 3.2 (2.5-4.0cm) LA (MM) (1.9-4.0cm) Aortic Cusp Exc 2.0 (1.5-2.0cm) EF (%) 60.0 (55-70%) Rt. Atrium 3.9 (1.9-4.0cm) Asc. Aorta cm IVSd 1.4 (0.7-1.1cm) RV (D) (1.8-2.4cm) PWd 1.3 (0.7-1.1cm) Mitral Valve Mitral Mitral Stenosis E wave 1.00m/s MV Mean GR. mmHg A wave 0.80m/s MV Peak GR. mmHg E/A ratio 1.3 2D MVA cm2 Aortic Valve Aortic Valve Aortic Stenosis V1 1.20m/s AO Mean GR. 4mmHg V2 1.50m/s AO Peak GR. 10mmHg LVOT Diameter 2.3 (1.8-2.4cm) Doppler CALEB 3.32cm2 Pulmonic Valve V2 0.80m/s Conclusion 1-Normal right and left ventricle systolic function with estimated ejection fraction of 60%. There is a mild left ventricle hypertrophy. normal LV diastolic function 2-trace tricuspid regurgitation
--- NOTE | 2025-04-21 17:48 | DVHPN2 ---
Progress Note Date Seen: Apr 21, 2025 Resident Creating Document: AIDA DOUGLASS RESIDENT Medical Necessity Reason Pt with a Central, PICC or Fol: No Subjective Review of Systems Patient seen and examined at the bedside Shortness of the breath and lower extremity edema has improved Objective vital signs Vital Sign Date Time Temp Pulse Resp B/P (MAP) Pulse Ox O2 Delivery O2 Flow Rate FiO2 04/21/25 17:02 98.1 89 16 155/95 (115) 96 98.1 04/21/25 14:21 Room Air 0.0 04/21/25 14:21 21 Total Intake and Output 04/20/25 04/20/25 04/21/25 14:59 22:59 06:59 Intake Total 390 ml 200 ml 800 ml Output Total 1700 ml 1750 ml Balance -1310 ml 200 ml -950 ml medications Current Medications Medications Dose Ordered Sig/Abida Route Start Time Stop Time Status Last Admin Dose Admin Heparin Sodium (Porcine) 5,000 units Q12HR SC 04/20/25 10:00 04/21/25 09:34 5,000 UNITS Atorvastatin Calcium 20 mg HS PO 04/20/25 22:00 04/20/25 21:51 20 MG Carvedilol 6.25 mg Q12HR PO 04/20/25 10:00 04/21/25 09:37 6.25 MG Furosemide 40 mg BID IV 04/20/25 10:00 04/21/25 09:36 40 MG Nitroglycerin 0.4 mg Q5MINP PRN SL 04/20/25 07:15 Albuterol 2.5 mg Q4HR NEB 04/20/25 10:00 04/21/25 14:21 2.5 MG Ipratropium [place] 0.5 mg Q4HR NEB 04/20/25 10:00 04/21/25 14:21 0.5 MG Prednisone 60 mg DAILY PO 04/20/25 10:00 04/21/25 09:36 60 MG Pantoprazole Sodium 40 mg DAILY IV 04/21/25 10:00 04/21/25 09:36 40 MG Diagnostic Test (Pha) 1 strip ACHS 04/20/25 11:30 04/21/25 11:58 1 STRIP Insulin Human Regular ACHS SC 04/20/25 11:30 04/21/25 11:58 4 UNITS Dextrose 50 ml UD PRN IV 04/20/25 07:15 Insulin Glargine 5 units BID@0700,2200 SC 04/20/25 22:00 04/21/25 06:11 5 UNITS Ceftriaxone Sodium 50 ml @ 100 mls/hr DAILY@09 IV 04/20/25 09:00 04/21/25 09:35 100 MLS/HR Doxycycline Hyclate 100 ml @ 100 mls/hr BID IV 04/20/25 10:00 04/21/25 10:54 100 MLS/HR Losartan Potassium 50 mg DAILY PO 04/20/25 10:00 04/21/25 09:38 50 MG Examination Skin - Patients skin is warm and dry. HEENT - normocephalic, atraumatic, moist mucous membranes, no scleral icterus, no conjunctival pallor. Neck - full ROM, no LAD, no JVD Pulmonary - B/L clear breath sounds without any wheezing, rales or stridor cardiovascular - regular S1,S2 heard, no added sounds or murmurs heard. peripheral pulses normal radial 2+, pedal 2+. GI - soft, nontender abdomen. no hepatospleenomegaly. Bowel sounds normoactive Neurological - Patient is A/O X 4 . Bilateral upper extremity strength 5/5, bilateral lower extremity strength 5/5, no facial droop, normal speech, no tremor, sensory deficits in feet laboratory and microbiology Laboratory Tests 04/21/25 05:33 Test 04/21/25 05:33 Range/Units Serum Glucose 134 H 74-106 mg/dL Problem List/Assessment/Plan Problem List/Assessment/Plan Bilateral lower extremity edema Possible heart failure ?Diastolic dysfunction Possible pulmonary hypertension Hypertensive heart disease with a possible heart failure Pneumonia Bilateral Pleural effusions Plan/Recommendation - continue diuresis with Lasix b.i.d. , strict I&O - blood pressure control with the losartan, Coreg. add MRA if tolerated - echocardiogram showed normal right and left ventricular systolic function with the estimated LVEF 60% with mild LVH diastolic dysfunction, trace tricuspid regurgitation - strict glycemic control No further inpatient cardiac workup needed. Advised patient strict blood pressure control and follow up with the PCP and Cardiology outpatient Goals of care discussed with the patient for over 16 minutes. Plan discussed with Dr. Chapman Plan discussed with: Patient, Other (RN) AIDA DOUGLASS RESIDENT Apr 21, 2025 17:48
[2025-04-22] VITALS (9 sets, daily range): BP systolic 125–137; BP diastolic 79–88; PULSE 86–106; RESP 16–20; TEMP 98–98.4; O2SAT 91–100
[2025-04-22] MEDS ORDERED: HYDROcodone-ACET 10/325MG TAB PO PRN (09:15)
[2025-04-22] MEDS ORDERED: ACETAMINOPHEN 325 MG TAB PO PRN (09:15)
[2025-04-22] MEDS ORDERED: MORPHINE SULFATE INJ 2 MG/ml SYRG IV PRN (09:15)
--- NOTE | 2025-04-22 10:04 | ECG ---
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
[2025-04-22] MEDS: LOSARTAN POTASSIUM 50 MG TAB PO SCH (10:05)
--- NOTE | 2025-04-22 11:04 | DVHPN2 ---
Reviewed: Care Plan, H&P, Labs, Medications, Previous Orders, Radiology Changes from previous H/P or p: No Changes General: Per HPI Eyes: No Pain, No Vision change, No Conjunctivae inflammation, No Eyelid inflammation, No Other, No Redness ENT: No Ear pain, No Ear discharge, No Nose pain, No Nose discharge, No Nose congestion, No Mouth pain, No Mouth swelling, No Throat pain, No Throat swelling, No Other Cardiovascular: No Chest Pain, No Palpitations, No Orthopnea, No Paroxysmal Noc. Dyspnea; Edema; No Lt Headedness, No Other Respiratory: No Cough, No Dry, No Shortness of breath, No SOB with excertion, No Wheezing, No Hemoptysis, No Pleuritic Pain, No Sputum; Other (diminished throughout ) Gastrointestinal: No Nausea, No Vomiting, No Abdominal Pain, No Diarrhea, No Constipation, No Melena, No Hematochezia, No Other Genitourinary: No Dysuria, No Frequency, No Incontinence, No Hematuria, No Retention, No Other Musculoskeletal: No other, No neck pain, No shoulder pain, No arm pain, No back pain, No hand pain; leg pain; No foot pain Skin: No Rash, No Lesions, No Jaundice, No Bruising, No Other Objective Vitals Vital Signs Date Time Temp Pulse Resp B/P (MAP) Pulse Ox O2 Delivery O2 Flow Rate FiO2 04/22/25 10:05 130/84 04/22/25 10:01 94 04/22/25 09:58 95 Room Air* 0 21 04/22/25 09:58 16 04/22/25 09:00 98.4 98.4 Intake/Output Intake and Output 04/22/25 07:00 Intake Total 1750 ml Output Total 5150 ml Balance -3400 ml Intake Oral 1600 ml IV Total 150 ml Output Urine Total 5150 ml Stool Total 0 ml General Appearance: Alert, Oriented X3 Abdomen: Normal bowel sounds, Soft Neuro: Normal gait, Normal speech Medications Current Medications Medications Dose Ordered Sig/Abida Route Start Time Stop Time Status Last Admin Dose Admin Heparin Sodium (Porcine) 5,000 units Q12HR SC 04/20/25 10:00 04/22/25 09:58 5,000 UNITS Atorvastatin Calcium 20 mg HS PO 04/20/25 22:00 04/21/25 22:09 20 MG Carvedilol 6.25 mg Q12HR PO 12/18/25 10:00 04/22/25 10:01 6.25 MG Furosemide 40 mg BID IV 04/20/25 10:00 04/22/25 10:03 40 MG Nitroglycerin 0.4 mg Q5MINP PRN SL 04/20/25 07:15 Albuterol 2.5 mg Q4HR NEB 04/20/25 10:00 04/22/25 09:58 2.5 MG Ipratropium [place] 0.5 mg Q4HR NEB 04/20/25 10:00 04/22/25 09:57 0.5 MG Prednisone 60 mg DAILY PO 04/20/25 10:00 04/22/25 10:01 60 MG Pantoprazole Sodium 40 mg DAILY IV 04/21/25 10:00 04/22/25 10:02 40 MG Diagnostic Test (Pha) 1 strip ACHS 04/20/25 11:30 04/22/25 07:17 1 STRIP Insulin Human Regular ACHS SC 04/20/25 11:30 04/22/25 07:17 6 UNITS Dextrose 50 ml UD PRN IV 04/20/25 07:15 Insulin Glargine 5 units BID@0700,2200 SC 04/20/25 22:00 04/22/25 07:17 5 UNITS Ceftriaxone Sodium 50 ml @ 100 mls/hr DAILY@09 IV 04/20/25 09:00 04/22/25 09:00 100 MLS/HR Doxycycline Hyclate 100 ml @ 100 mls/hr BID IV 04/20/25 10:00 04/22/25 10:04 100 MLS/HR Losartan Potassium 75 mg DAILY PO 04/22/25 10:00 04/22/25 10:05 75 MG Acetaminophen 650 mg Q6HP PRN PO 04/22/25 09:15 UNV Acetaminophen/ Hydrocodone Bitart 1 tab Q6HP PRN PO 04/22/25 09:15 UNV Morphine Sulfate 2 mg Q4HPRN PRN IV 04/22/25 09:15 UNV Laboratory Results Laboratory Tests 04/21/25 05:33 Urinalysis Test 04/20/25 12:00 Urine Color Colorless (Yellow) Urine Clarity Clear (Clear) Urine pH 6.0 (5.0-9.0) Urine Specific [place] 1.013 (1.001-1.035) Urine Protein 1+ (Negative) H Urine Ketones Negative (Negative) Urine Blood 1+ /uL (Negative) H Urine Nitrite Negative (Negative) Urine Bilirubin Negative (Negative) Urine Urobilinogen Normal mg/dL (Negative) Urine Leukocyte Esterase Negative /uL (Negative) Urine RBC 6 /hpf (0 - 3) Urine Microscopic WBC < 1 /HPF (0-3) Urine Squamous Epithelial Cells Few /hpf (<5) Urine Bacteria Few /hpf (None Seen) H Urine Glucose Trace mg/dL (Normal) Labs and/or images reviewed: Labs reviewed by me, Image(s) reviewed by me Assessment/Plan Assessment/Plan 35-year-old male admitted for acute hypoxic respiratory failure secondary to influenza-associated pneumonia, with severe bilateral lower extremity edema and impaired mobility, requiring inpatient management and further diagnostic evaluation. Acute hypoxic respiratory failure d/t pna and asthma exacerbation found on ct scan and cxr cont Oxygen saturation 88% on room air Supplemental oxygen to maintain SpO2 >92% Continuous pulse oximetry ordered duoneb atc ordered prednisone influenza and covid negative improving gradually acute bacterial community acquired pneumonia Influenza negative, COVID negative CT chest showing pulmonary infiltrates Empiric antibiotics per pneumonia protocol ceftriaxone and doxy Incentive spirometry acute Bilateral lower extremity edema with pain Progressive swelling from feet to thighs Evaluate for volume overload vs inflammatory etiology ordered echo fu results cxr and bnp normal ordered Lower extremity venous duplex ultrasound Elevation of extremities ordered lovenox dvt ppx for now ordered lasix bid strict i/o's chronic problems Type 2 diabetes mellitus on insulin ISS started home dose lantus 5units bid History of toe amputation Diabetic peripheral neuropathy Chronic lower extremity neuropathic pain Asthma ordered albuterol/atrovent prn Anemia, mild Hemoglobin FEN / PPx Fluids: Cautious IV fluids Electrolytes: Monitor daily BMP Nutrition: Diabetic diet DVT Prophylaxis: SCDs lovenox GI Prophylaxis: protonix Plan discussed with: Patient Date of Service: Apr 21, 2025 Billing Provider: SCOTTIE MULTANI DO Common Visit Codes: [id number] INP/OBS CARE(HIGH) SCOTTIE MULTANI DO Apr 22, 2025 11:04
--- NOTE | 2025-04-22 11:10 | DVHPN2 ---
Reviewed: Care Plan, H&P, Labs, Medications, Previous Orders, Radiology Changes from previous H/P or p: No Changes General: Per HPI Eyes: No Pain, No Vision change, No Conjunctivae inflammation, No Eyelid inflammation, No Other, No Redness ENT: No Ear pain, No Ear discharge, No Nose pain, No Nose discharge, No Nose congestion, No Mouth pain, No Mouth swelling, No Throat pain, No Throat swelling, No Other Cardiovascular: No Chest Pain, No Palpitations, No Orthopnea, No Paroxysmal Noc. Dyspnea; Edema; No Lt Headedness, No Other Respiratory: No Cough, No Dry, No Shortness of breath, No SOB with excertion, No Wheezing, No Hemoptysis, No Pleuritic Pain, No Sputum; Other (diminished throughout ) Gastrointestinal: No Nausea, No Vomiting, No Abdominal Pain, No Diarrhea, No Constipation, No Melena, No Hematochezia, No Other Genitourinary: No Dysuria, No Frequency, No Incontinence, No Hematuria, No Retention, No Other Musculoskeletal: No other, No neck pain, No shoulder pain, No arm pain, No back pain, No hand pain; leg pain; No foot pain Skin: No Rash, No Lesions, No Jaundice, No Bruising, No Other Objective Vitals Vital Signs Date Time Temp Pulse Resp B/P (MAP) Pulse Ox O2 Delivery O2 Flow Rate FiO2 04/22/25 10:05 130/84 04/22/25 10:01 94 04/22/25 09:58 95 Room Air* 0 21 04/22/25 09:58 16 04/22/25 09:00 98.4 98.4 Intake/Output Intake and Output 04/22/25 07:00 Intake Total 1750 ml Output Total 5150 ml Balance -3400 ml Intake Oral 1600 ml IV Total 150 ml Output Urine Total 5150 ml Stool Total 0 ml General Appearance: Alert, Oriented X3 Abdomen: Normal bowel sounds, Soft Neuro: Normal gait, Normal speech Medications Current Medications Medications Dose Ordered Sig/Abida Route Start Time Stop Time Status Last Admin Dose Admin Heparin Sodium (Porcine) 5,000 units Q12HR SC 04/20/25 10:00 04/22/25 09:58 5,000 UNITS Atorvastatin Calcium 20 mg HS PO 04/20/25 22:00 04/21/25 22:09 20 MG Carvedilol 6.25 mg Q12HR PO 12/18/25 10:00 04/22/25 10:01 6.25 MG Furosemide 40 mg BID IV 04/20/25 10:00 04/22/25 10:03 40 MG Nitroglycerin 0.4 mg Q5MINP PRN SL 04/20/25 07:15 Albuterol 2.5 mg Q4HR NEB 04/20/25 10:00 04/22/25 09:58 2.5 MG Ipratropium [place] 0.5 mg Q4HR NEB 04/20/25 10:00 04/22/25 09:57 0.5 MG Prednisone 60 mg DAILY PO 04/20/25 10:00 04/22/25 10:01 60 MG Pantoprazole Sodium 40 mg DAILY IV 04/21/25 10:00 04/22/25 10:02 40 MG Diagnostic Test (Pha) 1 strip ACHS 04/20/25 11:30 04/22/25 07:17 1 STRIP Insulin Human Regular ACHS SC 04/20/25 11:30 04/22/25 07:17 6 UNITS Dextrose 50 ml UD PRN IV 04/20/25 07:15 Insulin Glargine 5 units BID@0700,2200 SC 04/20/25 22:00 04/22/25 07:17 5 UNITS Ceftriaxone Sodium 50 ml @ 100 mls/hr DAILY@09 IV 04/20/25 09:00 04/22/25 09:00 100 MLS/HR Doxycycline Hyclate 100 ml @ 100 mls/hr BID IV 04/20/25 10:00 04/22/25 10:04 100 MLS/HR Losartan Potassium 75 mg DAILY PO 04/22/25 10:00 04/22/25 10:05 75 MG Acetaminophen 650 mg Q6HP PRN PO 04/22/25 09:15 UNV Acetaminophen/ Hydrocodone Bitart 1 tab Q6HP PRN PO 04/22/25 09:15 UNV Morphine Sulfate 2 mg Q4HPRN PRN IV 04/22/25 09:15 UNV Laboratory Results Laboratory Tests 04/21/25 05:33 Urinalysis Test 04/20/25 12:00 Urine Color Colorless (Yellow) Urine Clarity Clear (Clear) Urine pH 6.0 (5.0-9.0) Urine Specific [place] 1.013 (1.001-1.035) Urine Protein 1+ (Negative) H Urine Ketones Negative (Negative) Urine Blood 1+ /uL (Negative) H Urine Nitrite Negative (Negative) Urine Bilirubin Negative (Negative) Urine Urobilinogen Normal mg/dL (Negative) Urine Leukocyte Esterase Negative /uL (Negative) Urine RBC 6 /hpf (0 - 3) Urine Microscopic WBC < 1 /HPF (0-3) Urine Squamous Epithelial Cells Few /hpf (<5) Urine Bacteria Few /hpf (None Seen) H Urine Glucose Trace mg/dL (Normal) Assessment/Plan Assessment/Plan 35-year-old male admitted for acute hypoxic respiratory failure secondary to influenza-associated pneumonia, with severe bilateral lower extremity edema and impaired mobility, requiring inpatient management and further diagnostic evaluation. Acute hypoxic respiratory failure d/t pna and asthma exacerbation found on ct scan and cxr cont Oxygen saturation 88% on room air Supplemental oxygen to maintain SpO2 >92% Continuous pulse oximetry ordered duoneb atc ordered prednisone influenza and covid negative improving gradually acute bacterial community acquired pneumonia Influenza negative, COVID negative CT chest showing pulmonary infiltrates Empiric antibiotics per pneumonia protocol ceftriaxone and doxy Incentive spirometry acute Bilateral lower extremity edema with pain Progressive swelling from feet to thighs Evaluate for volume overload vs inflammatory etiology ordered echo fu results cxr and bnp normal ordered Lower extremity venous duplex ultrasound Elevation of extremities ordered lovenox dvt ppx for now ordered lasix bid strict i/o's chronic problems Type 2 diabetes mellitus on insulin ISS started home dose lantus 5units bid History of toe amputation Diabetic peripheral neuropathy Chronic lower extremity neuropathic pain Asthma ordered albuterol/atrovent prn Anemia, mild Hemoglobin Bilateral lower extremity edema Possible heart failure ?Diastolic dysfunction Possible pulmonary hypertension Hypertensive heart disease with a possible heart failure Pneumonia Bilateral Pleural effusions FEN / PPx Fluids: Cautious IV fluids Electrolytes: Monitor daily BMP Nutrition: Diabetic diet DVT Prophylaxis: SCDs lovenox GI Prophylaxis: protonix Plan discussed with: Patient Date of Service: Apr 22, 2025 Billing Provider: SCOTTIE MULTANI DO Common Visit Codes: [id number] INP/OBS CARE(HIGH) SCOTTIE MULTANI DO Apr 22, 2025 11:10
[2025-04-22] MEDS ORDERED: LOSA-534 PO ×2 (11:39→18:04)
[2025-04-22] MEDS ORDERED: ATOR20TA50 PO ×2 (11:39→18:04)
[2025-04-22] MEDS ORDERED: AZIT-43 PO (11:39)
[2025-04-22] MEDS ORDERED: CARV-214 PO (11:39)
[2025-04-22] MEDS ORDERED: FURO1TAB31 PO (11:39)
--- NOTE | 2025-04-22 11:40 | DVHDS2 ---
Discharge Summary Date of Admission Apr 20, 2025 at 07:03 Date of Discharge: Apr 22, 2025 Labs/Diagnostic Data: Laboratory Results Test 04/22/25 11:03 04/22/25 07:58 04/21/25 21:47 04/21/25 05:33 POC Glucose 219 mg/dl (70-106) Cortisol AM Sample 5.44 ug/dL (5.27-22.45) White Blood Count 6.4 10^3/uL (4.4-10.8) Red Blood Count 4.04 10^6/uL (4.5-5.90) Hemoglobin 11.9 g/dL (13.5-17.5) Hematocrit 34.8 % (41.0-53.0) Mean Corpuscular Volume 86.0 fL (80.0-100.0) Mean Corpuscular Hemoglobin 29.4 pg (28.0-32.0) Mean Corpuscular Hemoglobin Concent 34.2 g/dL (32.0-36.0) Red Cell Distribution Width 13.6 % (11.8-14.3) Platelet Count 245 10^3/uL (140-450) Mean Platelet Volume 7.3 fL (6.9-10.8) Neutrophils (%) (Auto) 69.0 % (37.0-80.0) Lymphocytes (%) (Auto) 18.3 % (10.0-50.0) Monocytes (%) (Auto) 9.8 % (0.0-12.0) Eosinophils (%) (Auto) 2.4 % (0.0-7.0) Basophils (%) (Auto) 0.5 % (0.0-2.0) Neutrophils # (Auto) 4.4 10 ^3/uL (1.6-8.6) Lymphocytes # (Auto) 1.2 10 ^3/uL (0.4-5.4) Monocytes # (Auto) 0.6 10 ^3/uL (0-1.3) Eosinophils # (Auto) 0.2 10 ^3/uL (0-0.8) Basophils # (Auto) 0 10 ^3/uL (0-0.2) Nucleated Red Blood Cells 0.0 % Sodium Level 140 mmol/L (136-145) Potassium Level 3.7 mmol/L (3.5-5.1) Chloride Level 101 mmol/L (98-107) Carbon Dioxide Level 28 mmol/L (20-31) Anion Gap 11 (5-15) Blood Urea Nitrogen 16 mg/dL (9-23) Creatinine 1.11 mg/dL (0.700-1.30) Glomerular Filtration Rate Calc 88 mL/min (>90) BUN/Creatinine Ratio 14.4 (10.0-20.0) Serum Glucose 134 mg/dL (74-106) Calcium Level 9.4 mg/dL (8.7-10.4) Total Bilirubin 0.5 mg/dL (0.2-1.0) Aspartate Amino Transferase (AST) 8 U/L (13-40) Alanine Aminotransferase (ALT) 18 U/L (7-40) Alkaline Phosphatase 77 U/L (46-116) Total Protein 6.3 g/dL (5.7-8.2) Albumin 3.6 g/dL (3.2-4.8) Test 04/20/25 12:00 04/20/25 10:56 04/20/25 08:08 04/19/25 23:39 Urine Color Colorless (Yellow) Urine Clarity Clear (Clear) Urine pH 6.0 (5.0-9.0) Urine Specific [place] 1.013 (1.001-1.035) Urine Protein 1+ (Negative) Urine Ketones Negative (Negative) Urine Blood 1+ /uL (Negative) Urine Nitrite Negative (Negative) Urine Bilirubin Negative (Negative) Urine Urobilinogen Normal mg/dL (Negative) Urine Leukocyte Esterase Negative /uL (Negative) Urine RBC 6 /hpf (0 - 3) Urine Microscopic WBC < 1 /HPF (0-3) Urine Squamous Epithelial Cells Few /hpf (<5) Urine Bacteria Few /hpf (None Seen) Urine Glucose Trace mg/dL (Normal) Urine Opiates Screen Neg (NEGATIVE) Urine Fentanyl Screen Neg (NEGATIVE) Urine Barbiturates Screen Neg (NEGATIVE) Urine Phencyclidine Screen Neg (NEGATIVE) Urine Amphetamines Screen Neg (NEGATIVE) Urine Benzodiazepines Screen Neg (NEGATIVE) Urine Cocaine Screen Neg (NEGATIVE) Urine Cannabinoids Screen Neg (NEGATIVE) Troponin I High Sensitivity 3 ng/L (</=54) Magnesium Level 1.5 mg/dL (1.6-2.6) Thyroid Stimulating Hormone (TSH) 1.21 uIU/mL (0.55-4.78) Influenza Type A Antigen Negative (Negative) Influenza Type B Antigen Negative (Negative) SARS-CoV-2 Antigen (Rapid) Negative (NEGATIVE) Test 04/19/25 23:00 04/19/25 22:59 04/19/25 21:57 Blood Gas Specimen Type Arterial Blood Gas Sample Site Left radial Blood Gas Patient Temperature 37.0 Arterial Blood Date Drawn [id number] Arterial Blood pH 7.434 (7.350-7.450) Arterial Blood Partial Pressure CO2 36.2 mmHg (35.0-48.0) Arterial Blood Partial Pressure O2 89.9 mmHg (83.0-108.0) Arterial Blood HCO3 23.7 mmol/L (21.0-28.0) Arterial Blood Oxygen Saturation 96.4 % (94.0-98.0) Arterial Blood Base Excess -0.1 mmol/L (-2.0-3.0) Arterial Blood Oxyhemoglobin 94.3 % (94.0-98.0) Arterial Blood Carboxyhemoglobin 1.5 % (0.5-1.5) Arterial Blood Methemoglobin 0.7 % (0.0-1.5) Arterial Blood Deoxyhemoglobin 3.5 % (0.0-5.0) Art Test Modified Blood Gas Total Hemoglobin 13.40 g/dL (13.5-17.5) Blood Gas Liter Flow 3.00 Blood Gas Modality Nasal cannula FiO2 % 32.0 Lactic Acid Level 0.7 mmol/L (0.4-2.0) D-Dimer, Quantitative 1.19 mg/L FEU (0.0-0.49) B-Type Natriuretic Peptide 63.15 pg/mL (0-100) Other Laboratory Tests 04/21/25 05:33 Brief Hx & Hospital Course: 35-year-old male admitted for acute hypoxic respiratory failure secondary to influenza-associated pneumonia, with severe bilateral lower extremity edema and impaired mobility, requiring inpatient management and further diagnostic evaluation. Acute hypoxic respiratory failure d/t pna and asthma exacerbation found on ct scan and cxr cont Oxygen saturation 88% on room air Supplemental oxygen to maintain SpO2 >92% Continuous pulse oximetry ordered duoneb atc ordered prednisone influenza and covid negative improving gradually acute bacterial community acquired pneumonia Influenza negative, COVID negative CT chest showing pulmonary infiltrates Empiric antibiotics per pneumonia protocol ceftriaxone and doxy Incentive spirometry acute Bilateral lower extremity edema with pain Progressive swelling from feet to thighs Evaluate for volume overload vs inflammatory etiology ordered echo fu results cxr and bnp normal ordered Lower extremity venous duplex ultrasound Elevation of extremities ordered lovenox dvt ppx for now ordered lasix bid strict i/o's chronic problems Type 2 diabetes mellitus on insulin ISS started home dose lantus 5units bid History of toe amputation Diabetic peripheral neuropathy Chronic lower extremity neuropathic pain Asthma ordered albuterol/atrovent prn Anemia, mild Hemoglobin Bilateral lower extremity edema Possible heart failure ?Diastolic dysfunction Possible pulmonary hypertension Hypertensive heart disease with a possible heart failure Pneumonia Bilateral Pleural effusions FEN / PPx Fluids: Cautious IV fluids Electrolytes: Monitor daily BMP Nutrition: Diabetic diet DVT Prophylaxis: SCDs lovenox GI Prophylaxis: protonix Plan discussed with: Patient Condition at Discharge: Fair Final Diagnosis/Problems List pna Discharge Disposition: Home Discharge Instruct/Medications Diet: Cardiac 2g Na,low cholest Activity: [id number] Scheduled Atorvastatin Calcium (Atorvastatin Calcium), 20 MG PO HS Azithromycin (Azithromycin), 250 MG PO DAILY Carvedilol (Coreg), 6.25 MG PO Q12HR Furosemide (Lasix), 40 MG PO DAILY Gabapentin (Once-Daily) (Gabapentin), 300 MG PO TID, (Reported) Hydrocodone-Acetaminophen (Hydrocodone Bitartrate/AC 10-325 mg), 1 TAB PO TID, (Reported) Insulin Glargine (Lantus), 10 UNIT SC BID, (Reported) Losartan Potassium (Losartan Potassium), 50 MG PO DAILY Discharge Statement: "Patient was advised to return to the ER or call 911 if any headaches, dizziness, shortness of breath, chest pain, abdominal pain, bleeding, fevers, or worsening of medical condition. Patient was counseled about treatment plan, medications, possible side effects, patientverbalized understanding. All questions were answered to the best of my ability. This discharge took greater then 30 minutes in planning, reviewing documentation, counseling the patient, and discussing with other team members." ASSESSMENT ASSESSMENT Assessment pna Date of Service: Apr 22, 2025 Billing Provider: SCOTTIE MULTANI DO Common Visit Codes: [id number] DISCH DAY >30min SCOTTIE MULTANI DO Apr 22, 2025 11:40
[2025-04-22] MEDS ORDERED: CARV6.2551 PO (18:04)
[2025-04-22] MEDS ORDERED: FURO40TA4 PO (18:04)
== END 2025-04-22 14:00 | disposition home or self-care (01) | DRG 141 ==
LOC: ER 21:19 → OVERFLOW 04-20 07:03 → TELE-EAST 04-20 14:50
PROVIDERS: ADMIT Internal Medicine; ATTEND Internal Medicine
DX: J45.901 Unspecified asthma with (acute) exacerbation (principal); J96.01 Acute respiratory failure with hypoxia; I50.33 Acute on chronic diastolic (congestive) heart failure; J15.69 Pneumonia due to other Gram-negative bacteria; I27.20 Pulmonary hypertension, unspecified; J15.9 Unspecified bacterial pneumonia; I11.0 Hypertensive heart disease with heart failure; D64.9 Anemia, unspecified; E11.42 Type 2 diabetes mellitus with diabetic polyneuropathy; F17.210 Nicotine dependence, cigarettes, uncomplicated; Z20.822 Contact with and (suspected) exposure to COVID-19; F17.290 Nicotine dependence, other tobacco product, uncomplicated; Z79.4 Long term (current) use of insulin; Z89.429 Acquired absence of other toe(s), unspecified side; Z89.411 Acquired absence of right great toe
CPT/HCPCS: 36415; 36600; 71045; 71275; 80053; 80307; 81001; 82088; 82533; 82805; 82962; 83605; 83735; 83880; 84244; 84443; 84484; 85025; 85379; 87426; 87804; 93005; 93306; 93970; 94640; 96365; 96375; G0378; J1815; J2470